=== PATIENT | female | born 1985 | race Caucasian/White ===

== ENCOUNTER 2017-06-21 08:25 | Observation (INO) | payer SELFPAY ==
[~2017-06-21] VITALS: Ht 172.7 cm; Wt 57.0 kg
[2017-06-21] MEDS ORDERED: SODIUM CHLOR 0.9% 1000 ML INJ 1,000 ML IV ONE (08:38)
[2017-06-21 08:44] VITALS: BP 117/71; PULSE 79; RESP 20; TEMP 97.6; O2SAT 100
[2017-06-21] MEDS ORDERED: HYDROmorphone HCL PF 2 MG/ML VIAL IV PUSH ONE ×2 (08:45→09:45)
[2017-06-21] MEDS ORDERED: ONDANSETRON HCL 4 MG/2 ML VIAL IVP ONE (08:45)
[2017-06-21] MEDS ORDERED: SODIUM CHLORIDE 0.9% FLUSH 10 ML FLUSH IVF PRN (08:45)
[2017-06-21 09:02] LABS: AUTOMATED NEUTROPHIL # 4.4 TH/MM3 (1.8-7.7); BASOPHIL # 0.1 TH/MM3 (0-0.2); BASOPHIL % 1.1 % (0.0-2.0); EOSINOPHIL % 0.2 % (0.0-4.0); HEMOGLOBIN 11.9 GM/DL (11.6-15.3); LYMPHOCYTE # 2.9 TH/MM3 (1.0-4.8); MEAN CELL VOLUME 88.8 FL (80.0-100.0); MEAN CORPUSCULAR HEMOGLOBIN 29.3 PG (27.0-34.0); MEAN PLATELET VOLUME 8.3 FL (7.0-11.0); MONO % 10.2 % (0.0-8.0); MONOCYTE # 0.8 TH/MM3 (0-0.9); NEUT % 53.5 % (16.0-70.0); PLATELET COUNT 281 TH/MM3 (150-450); RED BLOOD COUNT 4.05 MIL/MM3 (4.00-5.30); RED CELL DISTRIBUTION WIDTH 12.8 % (11.6-17.2); WHITE BLOOD COUNT 8.2 TH/MM3 (4.0-11.0)
[2017-06-21 09:10] LABS: CHLORIDE 109 MEQ/L (98-107); SODIUM (NA) 140 MEQ/L (136-145)
[2017-06-21 09:12] LABS: CALCIUM 8.7 MG/DL (8.5-10.1)
[2017-06-21 09:13] LABS: ALBUMIN 3.9 GM/DL (3.4-5.0); BICARBONATE 21.6 MEQ/L (21.0-32.0); BLOOD UREA NITROGEN 6 MG/DL (7-18); GLUCOSE,RANDOM 149 MG/DL (74-106)
[2017-06-21 09:16] LABS: ALT (GPT) 24 U/L (10-53); AST (GOT) 18 U/L (15-37); CREATININE 0.63 MG/DL (0.50-1.00); GLOMERULAR FILTRATION RATE 111 ML/MIN (>89)
[2017-06-21 09:18] LABS: TOTAL BILIRUBIN ADULT 0.3 MG/DL (0.2-1.0)
[2017-06-21 09:19] LABS: ALKALINE PHOSPHATASE 88 U/L (45-117)
[2017-06-21] MEDS ORDERED: IOHEXOL 350 MG/ML 10 ML VIAL (for RAD DIAG) IVCONTRAST ONE (09:39)
[2017-06-21 09:41] VITALS: BP 115/70; PULSE 91; RESP 20; O2SAT 100
--- NOTE | 2017-06-21 09:48 | RADRPT ---
EXAM DATE/TIME: 06/21/2017 09:26 [facility] COMPARISON: No previous studies available for comparison. INDICATIONS : Right lower quadrant pain. IV CONTRAST: 95 cc Omnipaque 350 (iohexol) IV ORAL CONTRAST: No oral contrast ingested. RADIATION DOSE: 8.52 CTDIvol (mGy) MEDICAL HISTORY : None SURGICAL HISTORY : Right fallopian tube surgery for tortion. IUD. ENCOUNTER: Initial ACUITY: 1 day PAIN SCALE: 9/10 LOCATION: Right lower quadrant TECHNIQUE: Volumetric scanning of the abdomen and pelvis was performed. Using automated exposure control and ad justment of the mA and/or kV according to patient size, radiation dose was kept as low as reasonably achievable to obtain optimal diagnostic quality images. DICOM format image data is available electro nically for review and comparison. FINDINGS: LOWER LUNGS: The visualized lower lungs are clear. LIVER: Homogeneous density without lesion. There is no dilation of the biliary tree. No calcified gallston es. SPLEEN: Normal size without lesion. PANCREAS: Within normal limits. KIDNEYS: Normal in size and shape. There is no mass, stone or hydronephrosis. ADRENAL GLANDS: Within normal limits. VASCULAR: There is no aortic aneurysm. BOWEL/MESENTERY: The stomach, small bowel, and colon demonstrate no acute abnormality. There is no free intraperitone al air. Appendix is normal. ABDOMINAL WALL: Within normal limits. RETROPERITONEUM: There is no lymphadenopathy. BLADDER: No wall thickening or mass. REPRODUCTIVE: There is a 9E within the endometrium. Uterus demonstrates no abnormality. Left ovary is within normal limits. In the right adnexa there is a low-density area measuring approximately 5.3 x 3.0 cm that ma y represent an enlarged ovary since it appears to contain follicles. Less likely this could represent a loculated fluid. INGUINAL: There is no lymphadenopathy or hernia. MUSCULOSKELETAL: No acute abnormality. CONCLUSION: 1. Asymmetrically enlarged right ovary versus fluid in the right adnexa. Pelvis ultrasound is current ly scheduled and should offer additional characterization. Pelvis ultrasound study should be performe d with transabdominal and transvaginal imaging technique. Given the possibility of an asymmetrically enlarged ovary, ovarian torsion is in the differential diagnosis. 2. Remainder of the examination is within normal limits including a normal appendix. Terry Ruelas MD on June 21, 2017 at 9:41 Board Certified Radiologist. This report was verified electronically.
--- NOTE | 2017-06-21 10:23 | PD ---
HPI Chief Complaint: Abdominal Pain Time Seen by Provider: 08:33 Travel History International Travel<30 days: No Contact w/Intl Traveler<30days: No Traveled to known affect area: No History of Present Illness HPI The patient's 32 years old and arrives to the ER with severe right abdominal pain. It started suddenly about one hour prior to ER arrival. The pain is 10 over 10 and constant. Hip flexion and right lateral recumbent position seems to be more comfortable. The patient reports a history of ovarian torsion which was treated surgically about 4 years prior in [place]. Patient's younger sister is also had ovarian torsion. No abnormal vaginal bleeding or discharge. PFSH Past Medical History Medical History: Denies Significant Hx Reproductive: Yes (IUD) Influenza Vaccination: No ?: Not LMP: unknown-IUD Past Surgical History Gynecologic Surgery: Yes (tortion to right tube:2012) Social History Alcohol Use: Yes (occas) Tobacco Use: No Substance Use: No Allergies-Medications (Allergen,Severity, Reaction): Coded Allergies: No Known Allergies (Unverified , 06/21/17) Reported Meds & Prescriptions Reported Meds & Active Scripts Active No Active Prescriptions or Reported Medications Review of Systems Except as stated in HPI: all other systems reviewed are Neg General / Constitutional: No: Fever HENT: No: Lightheadedness Cardiovascular: No: Chest Pain or Discomfort Physical Exam Narrative GENERAL: 32-year-old female severe distress secondary to pain Vital Signs Date Time Temp Pulse Resp B/P (MAP) Pulse Ox O2 Delivery O2 Flow Rate FiO2 06/21/17 09:41 91 20 115/70 (85) 100 06/21/17 08:44 97.6 79 20 117/71 (86) 100 SKIN: Warm and dry. HEAD: Atraumatic. Normocephalic. EYES: Pupils equal and round. No scleral icterus. No injection or drainage. ENT: No nasal bleeding or discharge. Mucous membranes pink and moist. NECK: Trachea midline. No JVD. CARDIOVASCULAR: Regular rate and rhythm. RESPIRATORY: No accessory muscle use. Clear to auscultation. Breath sounds equal bilaterally. GASTROINTESTINAL: Unable to examine due to clinical condition. MUSCULOSKELETAL: Extremities without clubbing, cyanosis, or edema. No obvious deformities. NEUROLOGICAL: Awake and alert. No obvious cranial nerve deficits. Motor grossly within normal limits. Five out of 5 muscle strength in the arms and legs. Normal speech. PSYCHIATRIC: Appropriate mood and affect; insight and judgment normal. Data Data Last Documented VS Vital Signs Date Time Temp Pulse Resp B/P (MAP) Pulse Ox O2 Delivery O2 Flow Rate FiO2 06/21/17 10:43 55 20 94/55 (68) 93 06/21/17 08:44 97.6 Orders Orders Complete Blood Count With Diff (06/21/17 08:38) Comprehensive Metabolic Panel (06/21/17 08:38) Urinalysis - C+S If Indicated (06/21/17 08:38) Iv Access Insert/Monitor (06/21/17 08:38) Ecg Monitoring (06/21/17 08:38) Sodium Chloride 0.9% Flush (Ns Flush) (06/21/17 08:45) Sodium Chlor 0.9% 1000 Ml Inj (Ns 1000 M (06/21/17 08:38) Ondansetron Inj (Zofran Inj) (06/21/17 08:45) Hydromorphone Pf Inj (Dilaudid Pf Inj) (06/21/17 08:45) Lactic Acid (06/21/17 08:38) Ct Abd/Pel W Iv Contrast(Rout) (06/21/17 08:38) Iohexol 350 Inj (Omnipaque 350 Inj) (06/21/17 09:39) Hydromorphone Pf Inj (Dilaudid Pf Inj) (06/21/17 09:45) Us Pelvis Comp W Dop Transvag (06/21/17 08:38) Prothrombin Time / Inr (Pt) (06/21/17 10:33) Act Partial Throm Time (Ptt) (06/21/17 10:33) Admit Order (Ed Use Only) (06/21/17 ) [employer] Senator / Telemetry ABDOUL.Q8H (06/21/17 11:04) Vital Signs (Adult) Q4H (06/21/17 11:04) Diet Npo (06/21/17 Lunch) Activity Bed Rest (06/21/17 11:04) Notify Dr: Other (06/21/17 11:04) Labs Laboratory Tests Test 06/21/17 08:50 06/21/17 10:35 White Blood Count 8.2 TH/MM3 Red Blood Count 4.05 MIL/MM3 Hemoglobin 11.9 GM/DL Hematocrit 36.0 % Mean Corpuscular Volume 88.8 FL Mean Corpuscular Hemoglobin 29.3 PG Mean Corpuscular Hemoglobin Concent 33.0 % Red Cell Distribution Width 12.8 % Platelet Count 281 TH/MM3 Mean Platelet Volume 8.3 FL Neutrophils (%) (Auto) 53.5 % Lymphocytes (%) (Auto) 35.0 % Monocytes (%) (Auto) 10.2 % Eosinophils (%) (Auto) 0.2 % Basophils (%) (Auto) 1.1 % Neutrophils # (Auto) 4.4 TH/MM3 Lymphocytes # (Auto) 2.9 TH/MM3 Monocytes # (Auto) 0.8 TH/MM3 Eosinophils # (Auto) 0.0 TH/MM3 Basophils # (Auto) 0.1 TH/MM3 CBC Comment DIFF FINAL Differential Comment Blood Urea Nitrogen 6 MG/DL Creatinine 0.63 MG/DL Random Glucose 149 MG/DL Total Protein 8.0 GM/DL Albumin 3.9 GM/DL Calcium Level 8.7 MG/DL Alkaline Phosphatase 88 U/L Aspartate Amino Transf (AST/SGOT) 18 U/L Alanine Aminotransferase (ALT/SGPT) 24 U/L Total Bilirubin 0.3 MG/DL Sodium Level 140 MEQ/L Potassium Level 3.3 MEQ/L Chloride Level 109 MEQ/L Carbon Dioxide Level 21.6 MEQ/L Anion Gap 9 MEQ/L Estimat Glomerular Filtration Rate 111 ML/MIN Lactic Acid Level 4.2 mmol/L Prothrombin Time 11.1 SEC Prothromb Time International Ratio 1.1 RATIO Activated Partial Thromboplast Time 24.3 SEC [facility] Medical Decision Making Medical Screen Exam Complete: Yes Emergency Medical Condition: Yes Medical Record Reviewed: Yes Differential Diagnosis IUP, UTI, ectopic , ov torsion, appendicitis, TOA, cervicitis, BV, Trichomoniasis, ov cyst, hernia, mittelschmerz, pain from menstruation Narrative Course CBC & BMP Diagram 06/21/17 08:50 Total Protein 8.0, Albumin 3.9, Calcium Level 8.7, Alkaline Phosphatase 88, Aspartate Amino Transf (AST/SGOT) 18, Alanine Aminotransferase (ALT/SGPT) 24, Total Bilirubin 0.3 Lactic acid is 4.2 CT scan is concerning for ovarian torsion Case discussed with the OB hospitalist at 0845, high index of suspicion for acute ovarian torsion with call as a "heads up" notification should there in fact be a torsed ovary. Last Impressions Abdomen/Pelvis/Transvag US 06/21/17837 Signed Impressions: Service Date/Time: Wednesday, June 21, 2017 09:38 - CONCLUSION: 1. Asymmetrically enlarged the right ovary with little to no blood flow documented within the ovary. Blood flow is asymmetrically decreased compared to the left ovary. Findings are suspicious for ovarian torsion. 2. Remainder of the examination is within normal limits. Terry Ruelas MD Abdomen/Pelvis CT 06/21/17837 Signed Impressions: Service Date/Time: Wednesday, June 21, 2017 09:26 - CONCLUSION: 1. Asymmetrically enlarged right ovary versus fluid in the right adnexa. Pelvis ultrasound is currently scheduled and should offer additional characterization. Pelvis ultrasound study should be performed with transabdominal and transvaginal imaging technique. Given the possibility of an asymmetrically enlarged ovary, ovarian torsion is in the differential diagnosis. 2. Remainder of the examination is within normal limits including a normal appendix. Terry Ruelas MD Case discussed with Dr. Steward. Stat transfer to [facility] with a plan for operative repair. Patient has remained stable in the ER with pain control after 1 mg of hydromorphone administered twice. Critical Care Narrative Aggregate critical care time was 35 minutes. Time to perform other separately billable procedures was not included in the critical care time. My time did not include minutes spent treating any other patients simultaneously or on activities that did not directly contribute to the patient's treatment. The services I provided to this patient were to treat and/or prevent clinically significant deterioration that could result in: Loss of ovary I provided critical care services requiring my management, as noted below: Chart data review, documentation time, medication orders and management, vital sign assessments/reviewing monitor data, ordering and reviewing lab tests, ordering and interpreting/reviewing x-rays and diagnostic studies, care of the patient and discussion of the patient with the admitting physicians. Diagnosis Primary Impression: Ovarian torsion Admitting Information Admitting Physician Requests: Admit Scripts No Active Prescriptions or Reported Meds Trevor Mcneal MD June 21, 2017 10:23
--- NOTE | 2017-06-21 10:29 | RADRPT ---
EXAM DATE/TIME: 06/21/2017 09:38 [facility] COMPARISON: CT ABDOMEN & PELVIS W CONTRAST, June 21, 2017, 9:26. INDICATIONS : Right lower quadrant pain. MEDICAL HISTORY : Right ovarian torsion. SURGICAL HISTORY : Right ovarian torsion surgery. ENCOUNTER: Subsequent ACUITY: 1 day PAIN SCORE: 8/10 LOCATION: Bilateral pelvis MEASUREMENTS: UTERUS: 7.7 x 4.5 x 3.5 cm ENDOMETRIAL STRIPE: 3 mm RIGHT OVARY: 4.8 x 3.9 x 3.1 cm LEFT OVARY: 3.7 x 3.3 x 1.8 cm FINDINGS: UTERUS: The myometrium has homogeneous echotexture without mass. IUD is present within the endometrial cavit y RIGHT OVARY: Asymmetrically enlarged with peripheral follicles. Little to no blood flow could be documented within the ovary. Blood flow is asymmetrically decreased. LEFT OVARY: Ovary contains no mass or significant cystic lesion. Follicles are present. Normal blood flow is doc umented. MISCELLANEOUS: No free fluid. CONCLUSION: 1. Asymmetrically enlarged the right ovary with little to no blood flow documented within the ovary. Blood flow is asymmetrically decreased compared to the left ovary. Findings are suspicious for ovaria n torsion. 2. Remainder of the examination is within normal limits. Terry Ruelas MD on June 21, 2017 at 10:24 Board Certified Radiologist. This report was verified electronically.
[2017-06-21 10:43] VITALS: BP 94/55; PULSE 55; RESP 20; O2SAT 93
[2017-06-21 11:10] LABS: INTERNATIONAL NORMALIZED RATIO 1.1 RATIO; PROTHROMBIN TIME - PATIENT 11.1 SEC (9.8-11.6)
[2017-06-21] MEDS ORDERED: BUPIVACAINE/EPINEPHRINE 0.5% PF 10 ML VIAL ONE (12:08)
[2017-06-21] MEDS ORDERED: ACETAMINOPHEN 1000 MG/100 ML 100 ML IV ONE (13:01)
[2017-06-21] MEDS ORDERED: MIDAZOLAM HCL 2 MG/2 ML VIAL ONE (13:02)
[2017-06-21] MEDS ORDERED: DO NOT ADM ANY ANTICOAGULANT DRUGS PRN (14:00)
[2017-06-21 14:30] VITALS: O2SAT 99
[2017-06-21 15:10] VITALS: BP 116/70; PULSE 76; RESP 16; TEMP 97.6
[2017-06-21] MEDS ORDERED: ONDANSETRON HCL 4 MG/2 ML VIAL IV PUSH ONE (18:09)
[2017-06-21] MEDS ORDERED: LIDOCAINE HCL 1% PF 5 ML SYRINGE OTHER ONE (18:09)
[2017-06-21] MEDS ORDERED: DEXAMETHASONE SOD PHOS 4 MG/ML VIAL IV ONE (18:09)
[2017-06-21] MEDS ORDERED: KETOROLAC TROMETHAMINE 30 MG/ML (IVP) VIAL IV PUSH ONE (18:09)
[2017-06-21] MEDS ORDERED: ROCURONIUM INJ 50 MG/5 ML SYRINGE IV PUSH ONE (18:09)
[2017-06-21] MEDS ORDERED: NEOSTIGMINE 5 MG/5 ML SYRINGE IV PUSH ONE (18:09)
[2017-06-21] MEDS ORDERED: GLYCOPYRROLATE 1 MG/5 ML SYRINGE IV PUSH ONE (18:09)
[2017-06-21] MEDS ORDERED: PROPOFOL 200 MG/20 ML AMP IV ONE (18:09)
--- NOTE | 2017-06-22 07:03 | MH ---
cc: Rebeka Power MD DATE OF ADMISSION: 06/21/2017 HISTORY OF PRESENT ILLNESS: The patient is a 32-year-old Sinhala female, G1, P0-0-1-0, who does not have menstrual periods, who has had Salome in place for 2+ years, who presented to the emergency room early this morning complaining of severe onset of right lower quadrant pain that would come and go. She had some nausea associated with it, no vomiting. She has a history 4 years ago of having a right ovarian torsion and she describes the pain as exactly the same. No other complaints. PAST MEDICAL HISTORY: ADD, history of depression and anxiety. PAST SURGICAL HISTORY: Laparoscopic treatment of right ovarian torsion. MEDICATIONS: Salome. ALLERGIES: NONE. SOCIAL HISTORY: No tobacco, about 5 drinks per week. No drug use. She is single and a law student. FAMILY HISTORY: Depression. FRENCH LECTURER HISTORY: No abnormal Paps. No STDs. OB HISTORY: EAB x 1. PHYSICAL EXAMINATION: GENERAL: The patient is curled up in a position in her bed. She is uncomfortable. VITAL SIGNS: Stable. She is afebrile. BREASTS: Without masses, nodes or discharge. CHEST: Clear to auscultation bilaterally. CARDIAC: Regular rate and rhythm without murmur, rub or gallop. ABDOMEN: Soft, it is tender in the bilateral lower quadrants, slight rebound, slight guarding. No CVA tenderness. No hernias noted. PELVIC: Per the emergency room, she had a fullness in her right adnexal region. Normal left adnexal region and very tender. LABORATORY VALUES: Include an ultrasound which reveals no blood flow to the right ovary. Overall ovary measuring about 4 x 3 x 3 cm. Left ovary with normal flow, normal measurement. No free fluid. ASSESSMENT: Includes right ovarian torsion. PLAN: Will be for diagnostic treatment. On discussion with the patient, she would prefer to remove the right tube and ovary because she does not want to go through this again. I told her that I would look during the case to see what would be the best course. Rebeka Power MD CCD/TL/ , 01:44 PM , 02:41 PM
--- NOTE | 2017-06-22 07:12 | MP ---
cc: Rebeka Power MD DATE OF OPERATION: 06/21/2017 PREOPERATIVE DIAGNOSIS: Suspected right ovarian torsion with pelvic pain. POSTOPERATIVE DIAGNOSIS: Suspected right ovarian torsion with pelvic pain. PROCEDURE PERFORMED: Diagnostic laparoscopy with right salpingo-oophorectomy. OPERATING SURGEON: Rebeka Power MD ANESTHESIA: General endotracheal. FINDINGS AT SURGERY: Included an enlarged edematous hemorrhagic right ovary which was torsed 5 times on its vascular supply and an edematous defective right fallopian tube, normal left tube and ovary, normal uterus. Rest of the pelvis normal. Normal appendix. ESTIMATED BLOOD LOSS: None. COMPLICATIONS: None. PROCEDURE IN DETAIL: After proper consents were obtained, the patient was taken to the operating room where general endotracheal anesthesia was applied. The patient was then sterilely prepped and draped. She was left in the dorsal position. Ontiveros catheter was placed. At this time using lidocaine with epinephrine solution we placed that in the umbilicus. I made a 5 mm incision of the umbilicus, placed a 5 mm trocar under direct visualization into the abdominopelvic cavity. We insufflated to an adequate level of pneumoperitoneum. Inspection revealed the enlarged right ovary and tube, which were edematous and ischemic in appearance. Normal appearing left tube and ovary, normal appearing uterus. At this time, I made another 5 mm incision in the mid axillary, left lower quadrant line. I used the grasper to help visualize the right tube and ovary. It appeared that it was torsed about 5 full complete turns on the pedicle. I untorsed it. She did get some pinking of the tube; however, the left ovary really appeared ischemic and edematous. Based on her wishes, I proceeded to do a right salpingo-oophorectomy. At this time, I made the umbilical port a 10/12 site and placed a 10/12 trocar and I then placed another 5 mm trocar in the right lower quadrant, midaxillary line and then came across the infundibulopelvic ligament using the EnSeal device through the broad ligament and across the utero-ovarian ligament and the tube. I then placed the Endo Catch in through the 10/12 site, scooped up the tube and ovary and brought it out through the umbilicus. Inspection afterwards revealed it to be hemostatic. We sucked out a little bit of blood that was there at the beginning of the surgery. I then removed instruments. Counts were correct. I closed the umbilical fascial incision using a Vicryl needle of 0 Vicryl. I then closed the skin using 4-0 Vicryl in a subcutaneous fashion. Counts were correct and the patient was stable to the recovery room. Rebeka Power MD CCD , 01:44 PM , 07:10 AM
== END 2017-06-21 18:10 | disposition home or self-care (01) ==
LOC: PHED 08:25 → INTOOBSV 11:07 → PHEDA 11:07 → UNDOADMIN 11:07 → HPAC 12:01 → H1EA 14:55
PROVIDERS: ADMIT Obstetrics & Gynecology; ATTEND Obstetrics & Gynecology
DX: N83.511 Torsion of right ovary and ovarian pedicle (principal)
CPT/HCPCS: 74177; 76830; 76856; 80053; 83605; 85025; 85610; 85730; 88305; 93975; 96361; 96374; 96375; 96376; 99291; G0378; J0131; J1100; J1170; J1885; J2250; J2405; J2710; J3010; J7030; Q9967